=== PATIENT | male | born 1995 | race Caucasian/White ===

== ENCOUNTER 2025-07-25 08:40 | Outpatient (CLI) | payer BC | END 2025-07-25 08:41 | disposition home or self-care (01) | LOC: CSHSLEEP 08:40 | DX: G47.10 Hypersomnia, unspecified (principal); R53.83 Other fatigue; R09.89 Other specified symptoms and signs involving the circulatory and respiratory systems; G47.33 Obstructive sleep apnea (adult) (pediatric) | CPT/HCPCS: 95800 ==